=== PATIENT | male | born 1995 | race American Indian/Alaskan Native ===

== ENCOUNTER 2017-02-12 15:19 | Emergency (ER) | payer BC ==
[2017-02-12] MEDS ORDERED: KEPPRA 1,000 MG/NS 0.75% 100ML 1,000 MG/100 ML BAG IV ONE ×2 (15:50→16:04)
[2017-02-12] MEDS ORDERED: NACL 0.9% 1000 ML 1,000 ML IV ONE (16:04)
--- NOTE | 2017-02-12 16:35 | Cat Scan Report ---
CT HEAD WITHOUT CONTRAST INDICATION: Seizure, traumatic brain injury. COMPARISON: None similar at this institution. FINDINGS: Noncontrast head CT demonstrates large, approximately 9 x 4 cm right frontotemporoparietal encephalomalacia/old MCA infarct as on axial images 20-52, series 2. No other definite acute infarct, hemorrhage, mass effect or midline shift. Symmetric ventricles and remainder sulci. Normal posterior fossa with preserved basilar cisterns. Unremarkable eye globes. Mild rightward nasal septal deviation. Mild left maxillary sinus mucosal thickening posteriorly. Clear remainder imaged paranasal sinuses and mastoid air cells. Slight diastasis of the coronal suture superiorly incidentally noted on axial image 49, series 3, nonspecific with unremarkable scalp soft tissues. Few small radiopaque dental fillings. 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 Please correlate. Thank you for the opportunity to participate in this patient's care.
[2017-02-12 16:48] LABS: Basophils % (Auto) 0.4 % (0.0-1.8); Eosinophils % (Auto) 0.4 % (0.0-4.3); Hematocrit 39.7 % (35.5-45.6); Hemoglobin 12.7 gm/dl (11.8-15.2); Mean Corpuscular HGB Conc 32 % (32-34); Mean Corpuscular Hemoglobin 30 pg (28-32); Mean Corpuscular Volume 94 fl (84-94); Platelet Count 230 K/mm3 (140-440); Red Blood Count 4.22 M/mm3 (3.65-5.03); Red Cell Distribution Width 13.3 % (13.2-15.2); White Blood Count 11.5 K/mm3 (4.5-11.0)
--- NOTE | 2017-02-12 16:56 | Emergency Department Report ---
ED Seizure HPI - General Chief Complaint: Seizure Stated Complaint: SEIZURE Time Seen by Provider: 02/12/17 15:45 Source: family, EMS Mode of arrival: Stretcher Limitations: No Limitations - History of Present Illness MD Complaint: seizure -: Gradual Description of Episode: tonic-clonic movement Duration of Episode: 20 -: second(s) Witnessed:: Yes Trauma: No Seizure History: known seizure disorder, history of non-compliance Place: home Associated Symptoms: denies: chest pain, confusion, cough, diaphoresis, fever/ chills, loss of appetite, malaise, rash, syncope, weakness, tongue injury Treatments Prior to Arrival: none - Related Data Home Medications Medication Instructions Recorded Confirmed Last Taken Aspirin [Adult Low Dose Aspirin EC] 81 mg PO QDAY 02/12/17 02/12/17 Unknown Lacosamide [Vimpat] 1 tab PO BID 02/12/17 02/12/17 Unknown Propranolol [Inderal] 10 mg PO TID 02/12/17 02/12/17 Unknown Previous Rx's Medication Instructions Recorded Last Taken Type levETIRAcetam [Keppra ORAL LIQ] 20 ml PO BID #3 bottle 02/12/17 Unknown Rx Allergies Allergy/AdvReac Type Severity Reaction Status Date / Time No Known Allergies Allergy Unverified 02/12/17 15:34 ED Review of Systems ROS: Stated complaint: SEIZURE Other details as noted in HPI Comment: All other systems reviewed and negative ED Past Medical Hx - Past Medical History Previous Medical History?: Yes Hx Seizures: Yes Additional medical 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 - Surgical History Past Surgical History?: Yes Additional Surgical History: trach/peg/ - Social History Smoking Status: Former Smoker Substance Use Type: None - Medications Home Medications: Home Medications Medication Instructions Recorded Confirmed Last Taken Type Aspirin [Adult Low Dose Aspirin EC] 81 mg PO QDAY 02/12/17 02/12/17 Unknown History Lacosamide [Vimpat] 1 tab PO BID 02/12/17 02/12/17 Unknown History Propranolol [Inderal] 10 mg PO TID 02/12/17 02/12/17 Unknown History levETIRAcetam [Keppra ORAL LIQ] 20 ml PO BID #3 bottle 02/12/17 Unknown Rx ED Physical Exam - General Limitations: No Limitations General appearance: lethargic - Head Head exam: Present: atraumatic, normocephalic - Eye Eye exam: Present: normal appearance, PERRL Pupils: Present: normal accommodation - ENT ENT exam: Present: normal exam - Neck Neck exam: Present: normal inspection - Respiratory Respiratory exam: Present: normal lung sounds bilaterally, respiratory distress - Cardiovascular Cardiovascular Exam: Present: regular rate, normal rhythm - GI/Abdominal GI/Abdominal exam: Present: soft. Absent: tenderness, guarding, rebound - Back Exam Back exam: Present: normal inspection - Neurological Exam Neurological exam: Present: CN II-XII intact, reflexes normal - Skin Skin exam: Present: warm, dry ED Course Vital Signs 02/12/17 02/12/17 16:03 18:03 Temperature 98.1 F Pulse Rate 96 H Respiratory 16 16 Rate Blood Pressure 126/78 [Left] O2 Sat by Pulse 99 99 Oximetry ED Medical Decision Making - Lab Data Result diagrams: 02/12/17 16:25 02/12/17 16:25 - EKG Data EKG shows normal: sinus rhythm Rate: normal - EKG Data When compared to previous EKG there are: no significant change - Radiology Data Radiology results: report reviewed, image reviewed - Medical Decision Making patient doing well , more awake after receiving 4 mg of ativan by ems , head ct negative , he has been non compliant with Critical care attestation.: If time is entered above; I have spent that time in minutes in the direct care of this critically ill patient, excluding procedure time. ED Disposition Clinical Impression: Seizure Disposition: DISCHARGED TO HOME OR SELFCARE Is pt being admited?: No Does the pt Need Aspirin: No Condition: Good Instructions: Recurrent Seizures Adult (ED) Prescriptions: levETIRAcetam [Keppra ORAL LIQ] 20 ml PO BID #3 bottle Referrals: PRIMARY CARE, [Primary Care Provider] - 3-5 Days Forms: Work/School Release Form(ED) Time of Disposition: 19:09
[2017-02-12 17:06] LABS: Alanine Aminotransferase 55 units/L (7-56); Albumin/Globulin Ratio 1.2 %; Alkaline Phosphatase 67 units/L (35-129); Blood Urea Nitrogen 7 mg/dL (9-20); Calcium 8.8 mg/dL (8.4-10.2); Carbon Dioxide 29 mmol/L (22-30); Glucose 107 mg/dL (75-100); Total Protein 7.3 g/dL (6.3-8.2)
[2017-02-12 17:07] LABS: Anion Gap 14 mmol/L; Chloride 100.1 mmol/L (98-107); Potassium 4.1 mmol/L (3.6-5.0); Sodium 139 mmol/L (137-145)
[2017-02-12 19:47] VITALS: BP 97/45
== END 2017-02-12 23:00 | disposition home or self-care (01) ==
LOC: ED 15:19
DX: R56.9 Unspecified convulsions (principal); Z87.891 Personal history of nicotine dependence; Z79.82 Long term (current) use of aspirin
CPT/HCPCS: 36415; 70450; 80053; 85025; 96361; 96374; 99284; J1953

== ENCOUNTER 2017-04-16 12:48 | Emergency (ER) | payer BC ==
[2017-04-16] MEDS ORDERED: NACL 0.9% 1000 ML 1,000 ML IV ONE (13:30)
--- NOTE | 2017-04-16 13:32 | Emergency Department Report ---
ED Seizure HPI - General Chief Complaint: Seizure Stated Complaint: SEIZURE Time Seen by Provider: 04/16/17 13:20 Source: EMS Mode of arrival: Ambulatory Limitations: No Limitations - History of Present Illness MD Complaint: loss of consciousness -: Sudden Description of Episode: loss of consciousness, tonic-clonic movement, bladder incontinence Duration of Episode: 15 -: second(s) Witnessed:: Yes Trauma: Yes Seizure History: known seizure disorder, history of non-compliance Place: home Possible Precipitating Event: lack of sleep, stress Associated Symptoms: denies: chest pain, confusion, cough, diaphoresis, fever/ chills, loss of appetite, malaise, rash, shortness of breath, syncope, weakness , tongue injury Treatments Prior to Arrival: none - Related Data Home Medications Medication Instructions Recorded Confirmed Last Taken Aspirin [Adult Low Dose Aspirin EC] 81 mg PO QDAY 02/12/17 02/12/17 Unknown Lacosamide [Vimpat] 1 tab PO BID 02/12/17 02/12/17 Unknown Propranolol [Inderal] 10 mg PO TID 02/12/17 02/12/17 Unknown Previous Rx's Medication Instructions Recorded Last Taken Type levETIRAcetam [Keppra ORAL LIQ] 20 ml PO BID #1 bottle 02/12/17 Unknown Rx levETIRAcetam [Keppra ORAL LIQ] 20 ml PO BID #3 bottle 02/12/17 Unknown Rx Allergies Allergy/AdvReac Type Severity Reaction Status Date / Time No Known Allergies Allergy Unverified 02/12/17 15:34 ED Review of Systems ROS: Stated complaint: SEIZURE Other details as noted in HPI Comment: All other systems reviewed and negative ED Past Medical Hx - Past Medical History Hx Seizures: Yes Additional medical 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 - Surgical History Additional Surgical History: trach/peg/ - Social History Smoking Status: Never Smoker - Medications Home Medications: Home Medications Medication Instructions Recorded Confirmed Last Taken Type Aspirin [Adult Low Dose Aspirin EC] 81 mg PO QDAY 02/12/17 02/12/17 Unknown History Lacosamide [Vimpat] 1 tab PO BID 02/12/17 02/12/17 Unknown History Propranolol [Inderal] 10 mg PO TID 02/12/17 02/12/17 Unknown History levETIRAcetam [Keppra ORAL LIQ] 20 ml PO BID #1 bottle 02/12/17 Unknown Rx levETIRAcetam [Keppra ORAL LIQ] 20 ml PO BID #3 bottle 02/12/17 Unknown Rx ED Physical Exam - General Limitations: No Limitations General appearance: alert, in no apparent distress - Head Head exam: Present: atraumatic, normocephalic - Eye Eye exam: Present: normal appearance, PERRL, EOMI - ENT ENT exam: Present: normal exam, normal orophraynx, mucous membranes moist - Neck Neck exam: Present: normal inspection - Respiratory Respiratory exam: Present: normal lung sounds bilaterally. Absent: respiratory distress - Cardiovascular Cardiovascular Exam: Present: regular rate, normal rhythm. Absent: systolic murmur, diastolic murmur, rubs, gallop - GI/Abdominal GI/Abdominal exam: Present: soft, normal bowel sounds - Rectal Rectal exam: Present: deferred - Extremities Exam Extremities exam: Present: normal inspection - Back Exam Back exam: Present: normal inspection - Neurological Exam Neurological exam: Present: alert, oriented X3 - Psychiatric Psychiatric exam: Present: normal affect, normal mood - Skin Skin exam: Present: warm, dry, intact, normal color. Absent: rash ED Course Vital Signs 04/16/17 13:30 Temperature 98 F Pulse Rate 76 Respiratory 18 Rate Blood Pressure 95/68 [Left] O2 Sat by Pulse 100 Oximetry ED Medical Decision Making - Lab Data Result diagrams: 04/16/17 13:57 04/16/17 13:57 - EKG Data When compared to previous EKG there are: no significant change Interpretation: no acute changes - Radiology Data Radiology results: report reviewed, image reviewed - Medical Decision Making labs and head ct negative , keppra given iv here in the er, neuro exam remains non focal , has appointment with neurologist in 48h, will go back to his usual dose of keppra that was lowered last month. Critical care attestation.: If time is entered above; I have spent that time in minutes in the direct care of this critically ill patient, excluding procedure time. ED Disposition Clinical Impression: Seizure Disposition: DC-01 TO HOME OR SELFCARE Is pt being admited?: No Does the pt Need Aspirin: No Condition: Good Instructions: Recurrent Seizures Adult (ED) Time of Disposition: 14:48
[2017-04-16] MEDS ORDERED: KEPPRA 500 MG in D5W 100 ML IV ONE (14:00)
[2017-04-16 14:16] LABS: Hematocrit 42.9 % (35.5-45.6); Hemoglobin 14.3 gm/dl (11.8-15.2); Mean Corpuscular HGB Conc 33 % (32-34); Mean Corpuscular Hemoglobin 32 pg (28-32); Mean Corpuscular Volume 95 fl (84-94); Platelet Count 221 K/mm3 (140-440); Red Blood Count 4.51 M/mm3 (3.65-5.03); Red Cell Distribution Width 12.5 % (13.2-15.2); White Blood Count 12.7 K/mm3 (4.5-11.0)
[2017-04-16 14:33] LABS: Alanine Aminotransferase 13 units/L (7-56); Albumin 4.8 g/dL (3.9-5); Albumin/Globulin Ratio 1.4 %; Alkaline Phosphatase 69 units/L (35-129); Anion Gap 17 mmol/L; BUN/Creatinine Ratio 11.66; Blood Urea Nitrogen 7 mg/dL (9-20); Calcium 9.4 mg/dL (8.4-10.2); Carbon Dioxide 26 mmol/L (22-30); Chloride 96.2 mmol/L (98-107); Glucose 103 mg/dL (75-100); Potassium 3.5 mmol/L (3.6-5.0); Sodium 136 mmol/L (137-145); Total Protein 8.3 g/dL (6.3-8.2)
--- NOTE | 2017-04-16 14:49 | Cat Scan Report ---
CT HEAD WITHOUT CONTRAST INDICATION: Seizure. COMPARISON: 02/12/2017. FINDINGS: Noncontrast head CT again demonstrates large, approximately 9 x 4 cm right frontotemporoparietal encephalomalacia/old MCA infarct as on axial series 2, images 16-50. No definite acute infarct, hemorrhage, mass effect or midline shift. No abnormal extra axial fluid collections. Normal posterior fossa with preserved basilar cisterns. Normal eye globes. Mild nasal septal deviation. Clear imaged paranasal sinuses and mastoid air cells. Stable calvarium with slight diastatic appearance of the coronal suture superiorly as on axial image 53. Normal scalp. Few radiopaque dental fillings. 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 Thank you for the opportunity to participate in this patient's care.
[2017-04-16 15:04] LABS: Basophils % (Manual) 0 % (0.0-1.8); Blastocytes % (Manual) 0 %; Eosinophils % (Manual) 0 % (0.0-4.3)
[2017-04-16 15:05] LABS: Diff Status Complete; Platelet Estimate Consistent w Auto; RBC Morphology Normal
[2017-04-16 15:27] VITALS: BP 105/65
== END 2017-04-16 16:05 | disposition home or self-care (01) ==
LOC: ED 12:48
DX: G40.909 Epilepsy, unspecified, not intractable, without status epilepticus (principal); Z79.82 Long term (current) use of aspirin
CPT/HCPCS: 36415; 70450; 80053; 85007; 85025; 93005; 93010; 96374; 99284; J1953

== ENCOUNTER 2017-12-24 09:24 | Outpatient (CLI) | payer MEDICAID ==
--- NOTE | 2017-12-25 05:01 | Cat Scan Report ---
FINAL REPORT EXAM: CT ORBIT/EAR/FOSSA WO CON HISTORY: HEARING LOSS TECHNIQUE: CT images are acquired through the orbits and internal auditory canals without contrast. Transaxial , coronal and sagittal reformations are provided. PRIORS: None. FINDINGS: The external auditory canals are patent. Tympanic membranes are intact. Normal appearance of the right and left cochlear and semi circular canals. No semi circular canal dehiscence. The course of the facial nerve is within normal limits bilaterally. No erosions. The scutum is intact. The pyramidal eminence is intact. Prussak's space and the hypotympanum are normal and patent bilaterally. The tegmen tympani is intact. Normal appearance of the oval windows. A small calvarial defect possibly involving the closure of the squamosal suture is present on axial series 2, 8, image 37 measuring up to 2 millimeters in greatest AP dimension. Normal spherical shape of the globes. Retro bulbar fat is unremarkable. No significant abnormality within the imaged paranasal sinuses or mastoid air cells. IMPRESSION: The middle ears, external and internal auditory canals are unremarkable. Consider MRI of the internal auditory canals as warranted. A small 2 millimeter defect in the calvarium anterior to the left mastoid may be congenital in nature or represent sequela of prior trauma.
== END 2017-12-24 09:25 | disposition home or self-care (01) ==
LOC: CT 09:24
PROVIDERS: ATTEND Otolaryngology
DX: H90.42 Sensorineural hearing loss, unilateral, left ear, with unrestricted hearing on the contralateral side (principal)
CPT/HCPCS: 70480

== ENCOUNTER 2018-04-10 13:53 | Outpatient (CLI) | payer MEDICAID ==
[2018-04-10 14:34] LABS: Hematocrit 42.9 % (35.5-45.6); Hemoglobin 14.1 gm/dl (11.8-15.2); Mean Corpuscular HGB Conc 33 % (32-34); Mean Corpuscular Hemoglobin 32 pg (28-32); Mean Corpuscular Volume 98 fl (84-94); Platelet Count 254 K/mm3 (140-440); Red Blood Count 4.37 M/mm3 (3.65-5.03); Red Cell Distribution Width 12.6 % (13.2-15.2)
[2018-04-10 15:04] LABS: Alanine Aminotransferase 18 units/L (7-56); Albumin 4.6 g/dL (3.9-5); BUN/Creatinine Ratio 11; Blood Urea Nitrogen 9 mg/dL (9-20); Calcium 9.4 mg/dL (8.4-10.2); Chol/HDL Ratio 2.44 %; HDL Cholesterol 49 mg/dL (40-59); Hemolysis Index 5; LDL Cholesterol,Direct 67 mg/dL (50-130)
--- NOTE | 2018-04-10 16:32 | XRay Report ---
FINAL REPORT EXAM: XR CHEST ROUTINE 2V HISTORY: CHEST PAIN TECHNIQUE: Two view chest PA and lateral PRIORS: None. FINDINGS: Cardiac and mediastinal contours are unremarkable. No focal pulmonary infiltrate is identified. No pleural fluid collection seen. Pulmonary vasculature is unremarkable. IMPRESSION: Negative two-view chest
== END 2018-04-10 13:54 | disposition home or self-care (01) ==
LOC: XRAY 13:53
PROVIDERS: ATTEND Internal Medicine
DX: R07.9 Chest pain, unspecified (principal); R79.89 Other specified abnormal findings of blood chemistry
CPT/HCPCS: 36415; 36600; 71046; 80053; 80061; 82785; 82803; 84436; 84443; 85027